=== PATIENT | female | born 1950 | race Caucasian/White ===

== ENCOUNTER → 2017-03-22 | Outpatient (CLI) | payer MEDICARE, OTHER | LOC: CT 03-21 09:00 → OPSV 08:17 → CT 11:00 | DX: C34.12 Malignant neoplasm of upper lobe, left bronchus or lung (principal); E11.9 Type 2 diabetes mellitus without complications; I82.210 Acute embolism and thrombosis of superior vena cava; C77.1 Secondary and unspecified malignant neoplasm of intrathoracic lymph nodes; R06.02 Shortness of breath; R10.9 Unspecified abdominal pain; J98.19 Other pulmonary collapse; R91.1 Solitary pulmonary nodule; E04.1 Nontoxic single thyroid nodule; K80.20 Calculus of gallbladder without cholecystitis without obstruction; E86.0 Dehydration | CPT/HCPCS: 71260; 74160; 96360; 96361; J1642; J7030; J7050; Q9962 ==

== ENCOUNTER → 2020-12-09 | Outpatient (CLI) | payer MEDICARE, OTHER | LOC: CT 11-24 13:30 | DX: Z51.11 Encounter for antineoplastic chemotherapy (principal); C34.12 Malignant neoplasm of upper lobe, left bronchus or lung; C77.1 Secondary and unspecified malignant neoplasm of intrathoracic lymph nodes; J47.9 Bronchiectasis, uncomplicated; Z88.0 Allergy status to penicillin; Z88.1 Allergy status to other antibiotic agents | CPT/HCPCS: 71260; Q9967 ==

== ENCOUNTER → 2021-07-17 | Outpatient (CLI) | payer MEDICARE, OTHER | LOC: US 07-14 10:00 → CT 07-14 11:00 → US 09:29 | DX: Z12.31 Encounter for screening mammogram for malignant neoplasm of breast (principal); C34.12 Malignant neoplasm of upper lobe, left bronchus or lung; C77.1 Secondary and unspecified malignant neoplasm of intrathoracic lymph nodes | CPT/HCPCS: 71260; 76641-LT; 76641-RT; Q9967 ==

== ENCOUNTER → 2021-12-18 | Outpatient (CLI) | payer MEDICARE | LOC: CT 11:30 | DX: C34.12 Malignant neoplasm of upper lobe, left bronchus or lung (principal); E04.1 Nontoxic single thyroid nodule; M79.89 Other specified soft tissue disorders | CPT/HCPCS: 71260; Q9967 ==

== ENCOUNTER → 2022-06-25 | Outpatient (CLI) | payer MEDICARE ==
[2022-06-25 12:52] LABS: BUN/CREATININE RATIO 15 (0-10)
== END ==
LOC: CT 11:30
PROVIDERS: Internal Medicine
DX: C34.12 Malignant neoplasm of upper lobe, left bronchus or lung (principal); E04.1 Nontoxic single thyroid nodule; M79.89 Other specified soft tissue disorders; R91.1 Solitary pulmonary nodule
CPT/HCPCS: 36415; 71260; 80053; Q9967